=== PATIENT | female | born 1975 | race Caucasian/White ===

== ENCOUNTER → 2018-11-24 | Outpatient (CLI) | payer OTHER ==
[2018-11-24 18:51] LABS: BASO # 0.1 10^3/uL (0.0-0.2); BASO % 0.5 % (0.0-1.0); EOS # 0.1 10^3/uL (0.0-0.5); EOS % 1.4 % (0.0-3.0); HEMATOCRIT 45.2 % (36.0-47.0); HEMOGLOBIN 15.8 g/dl (12.0-15.5); LYMPH # 2.5 10^3/uL (1.5-5.0); LYMPH % 27.4 % (24.0-44.0); MEAN CORPUSCULAR VOLUME 94.4 fl (80.0-96.0); MONO # 0.8 10^3/uL (0.0-0.8); MONO % 8.2 % (0.0-5.0); NEUTROPHILS # 5.7 10^3/uL (1.5-8.5); NEUTROPHILS % 62.4 % (36.0-66.0); PLATELET COUNT, AUTOMATED 284 10^3/uL (150-450); RED BLOOD COUNT 4.79 10^6/uL (4.00-5.40); WHITE BLOOD COUNT 9.2 10^3/uL (4.0-10.0)
[2018-11-24 19:00] LABS: THYROID STIMULATING HORMONE < 0.005 uIU/ML (0.358-3.740); THYROXINE (T4) 22.6 UG/DL (4.5-12.0); TOTAL T3 265.4 NG/DL (60.0-181.0)
[2018-11-29 08:23] LABS: F024-IgE Shrimp <0.10 kU/L (Class 0); F084-IGE KIWI FRUIT <0.10 kU/L (Class 0); F096-IGE AVOCADO <0.10 kU/L (Class 0); F338-IgE Oyster <0.10 kU/L (Class 0); F338-IgE Scallop <0.10 kU/L (Class 0); TRYPTASE 5.9 ug/L (2.2-13.2)
== END ==
LOC: M SMT 15:44
PROVIDERS: ATTEND Allergy & Immunology Allergy
DX: R53.82 Chronic fatigue, unspecified (principal); Z91.018 Allergy to other foods; T78.1XXA Other adverse food reactions, not elsewhere classified, initial encounter